=== PATIENT | female | born 1960 | race Caucasian/White ===

== ENCOUNTER → 2016-11-25 | Outpatient (CLI) | payer OTHER ==
[~2016-11-25] MED LIST: ASPI325T39 PO; ATOR10TA88 PO; CHOL1000 PO; CYAN100T PO; EPP3/2 IM; FLUT115A INH; HYDR-5688 PO; LORA10CA2 PO; METO25TA3 PO; MULT-506 PO; SULF800T23 PO; TRIA1SPR4 NAE; VNTHFA/IN INH
[2016-11-25 13:24] LABS: BASO ABS # 0.06 K/uL (0-0.2); COMPLETE YES; EOS % 2.8 %; HEMATOCRIT 43.5 % (37-47); IG% 0.2 %; LYMPH % 30.3 %; LYMPH ABS # 1.75 K/uL (1.2-3.4); MEAN CELL VOLUME 94.4 fL (80-100); MEAN CORPUSCULAR HEMOGLOBIN 31.2 pg (25-34); MEAN CORPUSCULAR HGB CONC 33.1 g/dl (32-36); MEAN PLATELET VOLUME 11.1 fL (7.4-10.4); MONO % 11.1 %; NEUT % 54.6 %; PLATELET COUNT 250 K/uL (130-400); RED BLOOD COUNT 4.61 M/uL (4.2-5.4); WHITE BLOOD COUNT 5.77 K/uL (4.8-10.8)
[2016-11-25 13:32] LABS: BLOOD UREA NITROGEN 11 mg/dl (7-18); BUN/CREATININE RATIO 14.1 (10-20); CALCIUM 8.4 mg/dl (8.5-10.1); CARBON DIOXIDE 28 mmol/L (21-32); CHLORIDE 106 mmol/L (98-107); CREATININE 0.76 mg/dl (0.60-1.20); GLUCOSE 86 mg/dl (70-99); POTASSIUM 4.3 mmol/L (3.5-5.1); SODIUM 141 mmol/L (136-145)
== END | disposition home or self-care (01) ==
LOC: C.LABMFLN 08:43
PROVIDERS: ATTEND Surgery
DX: C50.919 Malignant neoplasm of unspecified site of unspecified female breast (principal); Z01.812 Encounter for preprocedural laboratory examination

== ENCOUNTER 2016-11-27 06:57 | Inpatient (IN) | payer OTHER ==
[2016-11-26 09:08] VITALS: BMI 37.0
[~2016-11-27] VITALS: Ht 162.6 cm; Wt 97.7 kg
[2016-11-27] VITALS (11 sets, daily range): BP systolic 96–121; BP diastolic 58–72; PULSE 59–81; TEMP 36.3–36.8; O2SAT 93–97; Ht 162.6 cm; Wt 97.7 kg
[~2016-11-27 06:57] MED LIST changes: -CHOL1000 PO; +CLINDAMYCIN IV 900 MG in DEXTROSE 5% ADD-VANTAGE 100ML 100 ML IV SCH; -CYAN100T PO; -HYDR-5688 PO; +LACTATED RINGER'S 1000ML 1,000 ML IV SCH; -MULT-506 PO; -SULF800T23 PO
[2016-11-27] MEDS ORDERED: CYAN100T PO (07:35)
[2016-11-27] MEDS ORDERED: MULT-506 PO (07:35)
[2016-11-27] MEDS ORDERED: CHOL1000 PO (07:36)
[2016-11-27] MEDS ORDERED: MIDAZOLAM HCL 1 MG/ML 2ML VIAL ONE (08:38)
[2016-11-27] MEDS ORDERED: FENTANYL CITRATE INJ 50 MCG/1 ML 2 ML VIAL ONE ×2 (08:38→09:21)
[2016-11-27] MEDS ORDERED: ONDANSETRON INJ 2 MG/ML 2 ML VIAL IV PRN ×2 (09:00→10:30)
[2016-11-27] MEDS ORDERED: LABETALOL HCL IV 5 MG/ML 20ML IV PRN (09:00)
[2016-11-27] MEDS ORDERED: KETOROLAC TROMETHAMINE 30 MG/ML VIAL IV. PRN (09:00)
[2016-11-27] MEDS ORDERED: PROMETHAZINE HCL INJ 12.5 MG in SODIUM CHLORIDE 0.9% 50ML 50 ML IV PRN ×2 (09:00→12:45)
[2016-11-27] MEDS ORDERED: ATROPINE SULFATE 0.1 MG/ML 5ML SYR IV PRN (09:00)
[2016-11-27] MEDS ORDERED: LIDOCAINE HCL 2% 2 ML VIAL (20MG/ML) ONE (09:19)
[2016-11-27] MEDS ORDERED: ONDANSETRON INJ 2 MG/ML 2 ML VIAL ONE ×2 (09:19→10:34)
[2016-11-27] MEDS ORDERED: METOCLOPRAMIDE HCL INJ 5 MG/ML 2 ML VIAL ONE (09:19)
[2016-11-27] MEDS ORDERED: PROPOFOL IV EMULSION 10 MG/ML 20 ML VIAL IV ONE ×2 (09:19→09:21)
--- NOTE | 2016-11-27 09:20 | DIAGNOSTIC IMAGING REPORT ---
LYMPHOSCINTIGRAPHY CLINICAL HISTORY: Left breast cancer. PROCEDURE: Using standard sterile technique, 4 intradermal periareolar and one deep injection of 0.471 mCi of Lymphoseek was placed in the left breast. The patient tolerated the procedure well. There were no immediate complications. The patient was subsequently transported to the surgical suite. No imaging was obtained at the referring physician's request. IMPRESSION: Injection of 0.471 mCi of Lymphoseek into the left breast. Electronically signed by: Cornelio Amezcua M.D. 11/27/2016 9:18 AM Dictated Date/Time: 11/27/2016 9:18 AM
[2016-11-27] MEDS ORDERED: LACTATED RINGER'S 1000ML 1,000 ML IV SCH (10:29)
--- NOTE | 2016-11-27 10:29 | [facility] Operative Report ---
Operative Report Operative Date Nov 27, 2016. Pre-Operative Diagnosis Lt breast cancer Post-Operative Diagnosis same Procedure(s) Performed Lt mastectomy with sentinel lymph node bx Surgeon Amin Travel Clerk Surgeon(s) Haley Patel Estimated Blood Loss 30 cc Findings SLN neg on frozen Lt breast Specimens Lt Sent lymph node Lt breast Drains # 15 Rd KYUNG to chest/ axillary wound Anesthesia gen Complication(s) None Disposition Recovery Room / PACU I attest to the content of the Intraoperative Record and any orders documented therein. Any exceptions are noted below.
[2016-11-27] MEDS ORDERED: ALBUTEROL HFA 8 GM INHALER INH PRN (10:30)
[2016-11-27] MEDS ORDERED: MoRPHine SULFATE 4 MG/ML 1 ML CARP\\VIAL IV PRN (10:30)
[2016-11-27] MEDS ORDERED: MoRPHine SULFATE 2 MG/ML CARP IV PRN (10:30)
[2016-11-27] MEDS ORDERED: PROMETHAZINE HCL INJ 25 MG in SODIUM CHLORIDE 0.9% 50ML 50 ML IV PRN (10:30)
[2016-11-27] MEDS ORDERED: HYDROCODONE/ACETAMOPHEN 5/325MG TAB PO PRN ×2 (10:30)
[2016-11-27] MEDS ORDERED: HYDR-5688 PO (10:41)
[2016-11-27] MEDS ORDERED: SULF800T23 PO (10:41)
--- NOTE | 2016-11-27 10:49 | OPERATIVE REPORT ---
DATE OF OPERATION: 11/27/2016 PREOPERATIVE DIAGNOSIS: Recurrent left breast cancer. POSTOPERATIVE DIAGNOSIS: Same. NAME OF OPERATION: Left mastectomy with sentinel lymph node biopsy. STAFF SURGEON: Dr. Amin. MORTAR MIXER OPERATOR: Cody Patel PA-C. OPERATION AND FINDINGS: PROCEDURE: The patient was brought in the operating room and placed on the operating table in supine position. Her left arm was extended on an arm board. She had previously undergone injection for sentinel lymph node biopsy. Her left chest was prepped and draped in usual fashion. Incision was made in the left axilla using the Neoprobe, I was able to identify the sentinel lymph node which was sent for frozen section. During the frozen section, we did perform the mastectomy. The frozen section was negative. The left mastectomy was then performed by making superior and inferior incisions incorporating the nipple areolar complex in an elliptical fashion from medial to lateral and then constructing superior and inferior chest wall skin flaps by dissecting the breast tissue away from the subcutaneous tissue down to the chest wall. The pectoralis fascia was then removed with the breast. The breast was marked with a long silk suture lateral. I did encounter the biopsy cavity from prior excision which was down to the muscle. Additional muscle tissue was taken and sent for routine pathology. The site where the biopsy cavity was located on the muscle was marked using clips. At this point, the wounds were irrigated with saline solution then the axilla closed using 2-0 plain catgut for the deep tissue and then 4-0 nylon for the skin. The breast incision was then closed after a 15 round Paul-Lomas drain was placed into the left chest wound. The subcutaneous tissue was reapproximated using 3-0 Vicryl suture, then the skin reapproximated using subcuticular 4-0 Monocryl and then some 4-0 Prolene sutures. Steri-Strips were applied. Dressing was applied and patient transferred to recovery room in stable condition. I attest to the content of the Intraoperative Record and any orders documented therein. Any exceptio ns are noted below.
[2016-11-27] MEDS: FENTANYL CITRATE INJ 50 MCG/1 ML 2 ML VIAL IV PRN ×8 (10:50→11:25)
[2016-11-27] MEDS ORDERED: HYDROmorphone INJ 2 MG/ML SYR/VIAL ONE (11:35)
[2016-11-27] MEDS ORDERED: HYDROmorphone INJ 2 MG/ML SYR/VIAL IV PRN (11:45)
[2016-11-27] MEDS ORDERED: NURSING VERBAL MED ORDER ONE ×2 (11:45→21:30)
[2016-11-27] MEDS ORDERED: IV FLUIDS COMPLETED PRN (12:00)
--- NOTE | 2016-11-27 12:03 | Anesthesiology Progress Note ---
Anesthesia Post Op Note Date & Time Nov 27, 2016 at 12:03 Vital Signs Pain Intensity: 3 Vital Signs Past 12 Hours Date Time Temp Pulse Resp B/P Pulse Ox O2 Delivery O2 Flow Rate FiO2 11/27/16 11:53 76 17 107/58 97 11/27/16 11:53 77 17 11/27/16 11:49 113/54 11/27/16 11:48 81 15 97 11/27/16 11:48 82 15 11/27/16 11:43 67 16 122/59 97 11/27/16 11:43 70 16 11/27/16 11:39 109/63 11/27/16 11:38 78 16 11/27/16 11:38 78 16 97 11/27/16 11:34 114/57 11/27/16 11:33 86 19 98 11/27/16 11:33 79 19 11/27/16 11:29 116/59 11/27/16 11:28 79 17 97 11/27/16 11:28 79 17 11/27/16 11:27 36.9 75 16 11/27/16 11:27 76 16 98 11/27/16 11:23 124/62 11/27/16 11:22 78 14 98 11/27/16 11:22 77 14 11/27/16 11:18 113/64 11/27/16 11:17 76 16 11/27/16 11:17 77 16 98 11/27/16 11:13 116/58 11/27/16 11:12 68 17 98 11/27/16 11:12 69 17 11/27/16 11:09 122/59 11/27/16 11:07 75 20 99 11/27/16 11:07 75 20 11/27/16 11:04 123/64 11/27/16 11:02 71 17 11/27/16 11:02 71 17 99 11/27/16 10:59 120/58 11/27/16 10:57 57 18 99 11/27/16 10:57 55 18 11/27/16 10:55 137/63 11/27/16 10:54 78/68 11/27/16 10:52 58 17 11/27/16 10:52 59 17 100 11/27/16 10:49 142/72 11/27/16 10:47 59 18 11/27/16 10:47 59 18 100 11/27/16 10:44 113/67 11/27/16 10:42 58 14 11/27/16 10:42 56 14 100 11/27/16 10:40 122/45 11/27/16 10:37 36.5 62 16 122/45 100 Mask 10 11/27/16 07:41 36.7 61 20 120/66 97 Room Air Notes Mental Status: alert / awake / arousable, participated in evaluation Pt Amnestic to Procedure: Yes Nausea / Vomiting: adequately controlled Pain: adequately controlled Airway Patency, RR, SpO2: stable & adequate BP & HR: stable & adequate Hydration State: stable & adequate Anesthetic Complications: no major complications apparent
--- NOTE | 2016-11-27 12:12 | Discharge Instructions ---
Discharge Instructions Admission Reason for Admission: Left Breast Cancer Discharge Discharge Diagnosis / Problem: Left breast cancer Discharge Goals Goal(s): Decrease discomfort, Improve function, Improve disease control Activity Recommendations Activity Limitations: as noted below Lifting Limitations: no more than 10 pounds Exercise/Sports Limitations: until after follow-up appointment May Resume Sexual Activity: when tolerated (may shower) Driving or Machine Use: one week SPECIAL CARE INSTRUCTIONS: * Cover incisions and change daily for comfort/drainage. * Empty drain 2-3 times per day and record. * May use ibuprofen for pain as tolerated. * Expect some swelling and bruising. Call your doctor if: * Temperature above 101 degrees * Pain not relieved by pain medicine ordered * There is increased drainage or redness from any incision * You have any unanswered questions or concerns [phone]. FOLLOW UP VISIT: If not already scheduled, please call the office for a follow-up visit. for next week- drain check and wound check OFFICE PHONE NUMBER: Dr. Amin Office . Current Hospital Diet Patient's current hospital diet: Regular Diet Discharge Diet Recommended Diet: Regular Diet Procedures Procedures Performed: Left breast Mastectomy with [place] node biopsy Pending Studies Studies pending at discharge: no Medical Emergencies . Who to Call and When: Medical Emergencies: If at any time you feel your situation is an emergency, please call 911 immediately. . Non-Emergent Contact Non-Emergency issues call your: Surgeon . "Provider Documentation" section prepared by Abdirahman Amin. VTE Core Measure Inpt VTE Proph given/why not?: SCD's
--- NOTE | 2016-11-27 13:30 | Medical Consult ---
Consultation Date of Consultation: Nov 27, 2016. Attending Physician: Abdirahman Amin M.D. Reason for Consultation: Medical management History of Present Illness This patient is a pleasant 56-year-old female that underwent a left breast total mastectomy today for a history of recurrent breast cancer. The patient was first diagnosed with breast cancer in 2004. She underwent a left lumpectomy , chemotherapy and radiation. She was on tamoxifen until 2009. He was recently found on the mammogram that she had a new left breast mass. She currently has no complaints. She denies any significant pain. No nausea or vomiting. She does feel tired. She has not yet passed gas or had any bowel movements since the surgery. The patient's past medical history is significant for a recently diagnosed paroxysmal atrial fibrillation. She did have a discussion regarding anti- coagulation with her primary care provider. It was felt that she should get through this surgery before they initiate anticoagulation. Past Medical/Surgical History Paroxysmal atrial fibrillation Recurrent breast cancer Carotid artery stenosis Asthma Hyperlipidemia Status post left breast lumpectomy Status post Status post knee arthroscopy Status post tubal ligation Family History Mother-breast cancer and strokes Social History Smoking Status: Never Smoker Alcohol Use: none Marital Status: Housing Status: lives alone Allergies Coded Allergies: [place] (Verified Allergy, Severe, ANAPHYLAXIS, 11/27/16) Levofloxacin (Verified Allergy, Unknown, BODY ACHES AND DIFFICULTY WALKING , 11/27/16) Penicillins (Verified Allergy, Unknown, HIVES, 11/27/16) Home Medications Loratadine 10 mg daily Nasacort daily Atorvastatin 10 mg daily Aspirin 3 or 25 mg daily Metoprolol XL 25 mg daily Current Inpatient Medications Current Inpatient Medications Medications (Trade) Dose Ordered Sig/[place] Route Start Time Stop Time Status Last Admin Dose Admin Clindamycin Phosphate 900 mg/ Dextrose 106 ml @ 106 mls/hr PREOP IV 11/27/16 06:00 11/27/16 18:00 11/27/16 09:00 106 MLS/HR Lactated Ringer's (Lr 1000ml) 1,000 ml @ 15 mls/hr Q24H IV 11/27/16 06:00 11/28/16 05:59 11/27/16 07:50 15 MLS/HR Ondansetron HCl (Zofran Inj) 4 mg ONE PRN IV 11/27/16 09:00 11/27/16 14:00 Atropine Sulfate (Atropine Sulfate 0.1MG/Ml Inj) 0.5 mg Q1M PRN IV 11/27/16 09:00 11/27/16 14:00 Fentanyl Citrate (Fentanyl Inj) 25 mcg Q5M PRN IV 11/27/16 09:00 11/27/16 14:00 11/27/16 11:25 25 MCG Ketorolac Tromethamine (Toradol Inj) 30 mg ONE PRN IV. 11/27/16 09:00 11/27/16 14:00 11/27/16 10:46 30 MG Labetalol HCl 5 mg 5 mg Q5M PRN IV 11/27/16 09:00 11/27/16 14:00 Promethazine HCl/ Sodium Chloride (Phenergan Inj/ Nss 50ml) 50.5 ml @ 202 mls/hr ONE PRN IV 11/27/16 09:00 11/27/16 14:00 Albuterol (Ventolin Hfa Inhaler) 2 puffs QID PRN INH 11/27/16 10:30 12/27/16 10:29 Atorvastatin Calcium (Lipitor Tab) 10 mg QPM PO 11/27/16 21:00 12/27/16 20:59 Metoprolol Succinate (Toprol Xl Tab) 25 mg HS PO 11/27/16 21:00 12/27/16 20:59 Miscellaneous Information 1 ea 1 ea QS N/A 11/27/16 16:00 12/27/16 15:59 Lactated Ringer's (Lr 1000ml) 1,000 ml @ 50 mls/hr Q20H IV 11/27/16 10:29 12/27/16 10:28 11/27/16 12:44 50 MLS/HR Acetaminophen/ Hydrocodone Bitart ([place] 5/325 Tab) 1 tab Q4 PRN PO 11/27/16 10:30 12/11/16 10:29 Acetaminophen/ Hydrocodone Bitart ([place] 5/325 Tab) 2 tab Q4 PRN PO 11/27/16 10:30 12/11/16 10:29 Morphine Sulfate (MoRPHine SULFATE INJ) 2 mg Q4H PRN IV 11/27/16 10:30 12/11/16 10:29 Morphine Sulfate 4 mg 4 mg Q4H PRN IV 11/27/16 10:30 12/11/16 10:29 11/27/16 12:48 4 MG Promethazine HCl/ Sodium Chloride (Phenergan Inj/ Nss 50ml) 51 ml @ 204 mls/hr Q6H PRN IV 11/27/16 10:30 12/27/16 10:29 Ondansetron HCl (Zofran Inj) 4 mg Q6H PRN IV 11/27/16 10:30 12/27/16 10:29 Hydromorphone HCl (Dilaudid Inj) 0.25 mg Q5M PRN IV 11/27/16 11:45 11/27/16 16:45 Miscellaneous 1 ea 1 ea PRN PRN N/A 11/27/16 12:00 11/27/17 11:59 Promethazine HCl 12.5 mg/Sodium Chloride 50.5 ml @ 204 mls/hr Q6H PRN IV 11/27/16 12:45 12/27/16 12:44 Clindamycin Phosphate/Dextrose (Cleocin Iv/ Dextrose Add-[place] 50ML) 54 ml @ 108 mls/hr Q8@,, IV 11/27/16 18:00 11/28/16 17:59 Review of Systems 10 system review performed and negative unless noted in HPI or below Physical Exam Date Time Temp Pulse Resp B/P Pulse Ox O2 Delivery O2 Flow Rate FiO2 11/27/16 12:45 36.3 80 16 121/72 96 Nasal Cannula 2.0 11/27/16 12:37 95 Nasal Cannula 2.0 11/27/16 12:36 95 Nasal Cannula 2.0 11/27/16 12:15 36.8 81 12 102/65 95 Nasal Cannula 2.0 11/27/16 11:53 76 17 107/58 97 11/27/16 11:53 77 17 11/27/16 11:49 113/54 11/27/16 11:48 81 15 97 11/27/16 11:48 82 15 11/27/16 11:43 67 16 122/59 97 11/27/16 11:43 70 16 11/27/16 11:39 109/63 11/27/16 11:38 78 16 11/27/16 11:38 78 16 97 11/27/16 11:34 114/57 11/27/16 11:33 86 19 98 1/11/17 11:33 79 19 11/27/16 11:29 116/59 11/27/16 11:28 79 17 97 11/27/16 11:28 79 17 11/27/16 11:27 36.9 75 16 11/27/16 11:27 76 16 98 11/27/16 11:23 124/62 11/27/16 11:22 78 14 98 11/27/16 11:22 77 14 11/27/16 11:18 113/64 11/27/16 11:17 76 16 11/27/16 11:17 77 16 98 11/27/16 11:13 116/58 11/27/16 11:12 68 17 98 11/27/16 11:12 69 17 11/27/16 11:09 122/59 11/27/16 11:07 75 20 99 11/27/16 11:07 75 20 11/27/16 11:04 123/64 11/27/16 11:02 71 17 11/27/16 11:02 71 17 99 11/27/16 10:59 120/58 11/27/16 10:57 57 18 99 11/27/16 10:57 55 18 11/27/16 10:55 137/63 11/27/16 10:54 78/68 11/27/16 10:52 58 17 11/27/16 10:52 59 17 100 11/27/16 10:49 142/72 11/27/16 10:47 59 18 11/27/16 10:47 59 18 100 11/27/16 10:44 113/67 11/27/16 10:42 58 14 11/27/16 10:42 56 14 100 11/27/16 10:40 122/45 11/27/16 10:37 36.5 62 16 122/45 100 Mask 10 11/27/16 07:41 36.7 61 20 120/66 97 Room Air General Appearance: no apparent distress Head: normocephalic Eyes: EOMI Neck: no JVD Respiratory/Chest: lungs clear Cardiovascular: regular rate, rhythm Abdomen/GI: normal bowel sounds, non tender, soft Extremities/Musculoskelatal: no calf tenderness, no pedal edema Neurologic/Psych: no motor/sensory deficits, oriented x 3 Skin: warm/dry Assessment & Plan 56-year-old female with recurrent left-sided breast cancer status post left mastectomy today 11/27 -pain management, DVT prophylaxis, PT per primary team Paroxysmal A. fib-patient sounds like she is in regular rhythm today -Continue metoprolol XL 25 mg daily -Restart ASA 325 mg daily when ok with primary team -Would suggest that the patient be on a long-term anticoagulation. This may be discussed with her primary care physician after she is discharged home Asthma-no signs of flare -Continue Advair 115/21 BID -Duo nebs will be available if needed Hyperlipidemia -Continue atorvastatin 10 mg daily Thank you for this consultation. We will continue to follow i personally examined pt and verified all pickens points w A [facility] pain - but notes that pain meds have helped and just asked for one - notes it should be coming soon. does not believe pain med changes will be needed. was going to f/u w PCP re afib in may vitals noted nad, breathing unlabored, no pallor afib - rate controlled - right now risks of anticoagulation would outweigh benefits but suspect that in the long run she'd benefit. dont' have enough data to calculate CHADS-Vasc at this time. asked her to f/u w PCP in about a month (at which time she'd likely then be healed enough from surgery to be able to start anticoagulation if in fact it remains indicated) asthma - no breathing difficulty. as above otherwise as above Additional Copies To Shelley Rosas M.D.
[2016-11-27] MEDS ORDERED: CLINDAMYCIN 600 MG/54 ML D5W IV SCH (14:00)
[2016-11-27] MEDS: CLINDAMYCIN IV 600 MG in DEXTROSE 5% ADD-VANTAGE 50ML 50 ML IV SCH (17:33)
[2016-11-27] MEDS ORDERED: ATORVASTATIN 10 MG TAB PO SCH (21:00)
[2016-11-27] MEDS ORDERED: METOPROLOL SUCC 25MG EXT REL TAB PO SCH (21:00)
[2016-11-27] MEDS ORDERED: LORATADINE 10 MG TAB PO STA (21:30)
[2016-11-27] MEDS: SALMETEROL INH SCH (21:46)
[2016-11-27] MEDS: FLUTICASONE PROP INH SCH (21:46)
[2016-11-28] MEDS: CLINDAMYCIN IV 600 MG in DEXTROSE 5% ADD-VANTAGE 50ML 50 ML IV SCH ×2 (01:39→10:15)
[2016-11-28 03:51] VITALS: BP 105/69; PULSE 67; TEMP 36.9; O2SAT 92
--- NOTE | 2016-11-28 06:44 | Surgery Progress Note ---
Surgery Progress Note Date of Service Nov 28, 2016. Subjective Post OP Day: 1 No nausea, No vomiting feeling ok, taking no pain medication drainage expected Objective Vital Signs: Date Time Temp Pulse Resp B/P Pulse Ox O2 Delivery O2 Flow Rate FiO2 11/28/16 03:51 36.9 67 14 105/69 92 Room Air 11/28/16 00:55 Room Air 11/27/16 23:14 36.6 60 14 103/66 94 Room Air 11/27/16 22:48 Nasal Cannula 2.0 11/27/16 21:47 59 98/64 11/27/16 19:17 36.6 59 17 101/58 93 Room Air 11/27/16 15:18 36.8 61 17 101/64 97 Nasal Cannula 2.0 11/27/16 14:15 36.7 66 16 103/67 97 Nasal Cannula 2.0 11/27/16 13:15 36.5 69 16 96/58 97 Nasal Cannula 2.0 11/27/16 12:45 36.3 80 16 121/72 96 Nasal Cannula 2.0 11/27/16 12:37 95 Nasal Cannula 2.0 11/27/16 12:36 95 Nasal Cannula 2.0 11/27/16 12:15 36.8 81 12 102/65 95 Nasal Cannula 2.0 11/27/16 11:53 76 17 107/58 97 11/27/16 11:53 77 17 11/27/16 11:49 113/54 11/27/16 11:48 81 15 97 11/27/16 11:48 82 15 11/27/16 11:43 67 16 122/59 97 11/27/16 11:43 70 16 11/27/16 11:39 109/63 11/27/16 11:38 78 16 11/27/16 11:38 78 16 97 11/27/16 11:34 114/57 11/27/16 11:33 86 19 98 11/27/16 11:33 79 19 11/27/16 11:29 116/59 11/27/16 11:28 79 17 97 11/27/16 11:28 79 17 11/27/16 11:27 36.9 75 16 11/27/16 11:27 76 16 98 11/27/16 11:23 124/62 11/27/16 11:22 78 14 98 11/27/16 11:22 77 14 11/27/16 11:18 113/64 11/27/16 11:17 76 16 11/27/16 11:17 77 16 98 11/27/16 11:13 116/58 11/27/16 11:12 68 17 98 11/27/16 11:12 69 17 11/27/16 11:09 122/59 11/27/16 11:07 75 20 99 11/27/16 11:07 75 20 11/27/16 11:04 123/64 11/27/16 11:02 71 17 11/27/16 11:02 71 17 99 11/27/16 10:59 120/58 11/27/16 10:57 57 18 99 11/27/16 10:57 55 18 11/27/16 10:55 137/63 11/27/16 10:54 78/68 11/27/16 10:52 58 17 11/27/16 10:52 59 17 100 11/27/16 10:49 142/72 11/27/16 10:47 59 18 11/27/16 10:47 59 18 100 11/27/16 10:44 113/67 11/27/16 10:42 58 14 11/27/16 10:42 56 14 100 11/27/16 10:40 122/45 11/27/16 10:37 36.5 62 16 122/45 100 Mask 10 11/27/16 07:41 36.7 61 20 120/66 97 Room Air General Appearance: no apparent distress Respiratory/Chest: no respiratory distress Incision(s): dry, intact, drainage Laboratory Results: Results Past 24 Hours Test 11/28/16 06:25 Range/Units Assessment & Plan 11/28/16- s/p Lt mastectomy w/ sentinel lymph node bx- cont IV atbx, monitor for pain control, wound care
[2016-11-28] MEDS ORDERED: IBUPROFEN 600 MG TAB PO PRN (06:45)
[2016-11-28 07:19] VITALS: BP 113/71; PULSE 66; TEMP 36.8; O2SAT 93
--- NOTE | 2016-11-28 08:04 | Anesthesiology Progress Note ---
Anesthesia Post Op Note Date & Time Nov 28, 2016 at 08:03 Vital Signs Pain Intensity: 3.0 Vital Signs Past 12 Hours Date Time Temp Pulse Resp B/P Pulse Ox O2 Delivery O2 Flow Rate FiO2 11/28/16 07:19 36.8 66 16 113/71 93 Room Air 11/28/16 03:51 36.9 67 14 105/69 92 Room Air 11/28/16 00:55 Room Air 11/27/16 23:14 36.6 60 14 103/66 94 Room Air 11/27/16 22:48 Nasal Cannula 2.0 11/27/16 21:47 59 98/64 Notes Mental Status: alert / awake / arousable, participated in evaluation Pt Amnestic to Procedure: Yes Nausea / Vomiting: adequately controlled Pain: adequately controlled Airway Patency, RR, SpO2: stable & adequate BP & HR: stable & adequate Hydration State: stable & adequate Anesthetic Complications: no major complications apparent
[2016-11-28] MEDS: SALMETEROL INH SCH (08:09)
[2016-11-28] MEDS: FLUTICASONE PROP INH SCH (08:09)
[2016-11-28] MEDS ORDERED: LORATADINE 10 MG TAB PO SCH ×2 (09:00→21:00)
--- NOTE | 2016-11-28 10:57 | Hospitalist Progress Note ---
Hospitalist Progress Note Date of Service Nov 28, 2016. (Ximena Proctor PA-C) Subjective Pt evaluation today including: conversation w/ patient, physical exam, chart review, review of inpatient medication list Patient reports feeling fairly well this morning. She denies any significant pain. No nausea. She has however not passed gas. She has had the hiccups and has been burping. No shortness of breath. No chest pain or heart palpitations. No fever or chills. Additional Comments: 6 system review negative. Please see pertinent positives in the history of present illness section. (Ximena Proctor PA-C) Objective Vital Signs Date Time Temp Pulse Resp B/P Pulse Ox O2 Delivery O2 Flow Rate FiO2 11/28/16 07:19 36.8 66 16 113/71 93 Room Air 11/28/16 03:51 36.9 67 14 105/69 92 Room Air 11/28/16 00:55 Room Air 11/27/16 23:14 36.6 60 14 103/66 94 Room Air 11/27/16 22:48 Nasal Cannula 2.0 11/27/16 21:47 59 98/64 11/27/16 19:17 36.6 59 17 101/58 93 Room Air 11/27/16 15:18 36.8 61 17 101/64 97 Nasal Cannula 2.0 11/27/16 14:15 36.7 66 16 103/67 97 Nasal Cannula 2.0 11/27/16 13:15 36.5 69 16 96/58 97 Nasal Cannula 2.0 11/27/16 12:45 36.3 80 16 121/72 96 Nasal Cannula 2.0 11/27/16 12:37 95 Nasal Cannula 2.0 11/27/16 12:36 95 Nasal Cannula 2.0 11/27/16 12:15 36.8 81 12 102/65 95 Nasal Cannula 2.0 11/27/16 11:53 76 17 107/58 97 11/27/16 11:53 77 17 11/27/16 11:49 113/54 11/27/16 11:48 81 15 97 11/27/16 11:48 82 15 11/27/16 11:43 67 16 122/59 97 11/27/16 11:43 70 16 11/27/16 11:39 109/63 11/27/16 11:38 78 16 11/27/16 11:38 78 16 97 11/27/16 11:34 114/57 11/27/16 11:33 86 19 98 11/27/16 11:33 79 19 11/27/16 11:29 116/59 11/27/16 11:28 79 17 97 11/27/16 11:28 79 17 11/27/16 11:27 36.9 75 16 11/27/16 11:27 76 16 98 11/27/16 11:23 124/62 11/27/16 11:22 78 14 98 11/27/16 11:22 77 14 11/27/16 11:18 113/64 11/27/16 11:17 76 16 11/27/16 11:17 77 16 98 11/27/16 11:13 116/58 11/27/16 11:12 68 17 98 11/27/16 11:12 69 17 11/27/16 11:09 122/59 11/27/16 11:07 75 20 99 11/27/16 11:07 75 20 11/27/16 11:04 123/64 11/27/16 11:02 71 17 11/27/16 11:02 71 17 99 11/27/16 10:59 120/58 11/27/16 10:57 57 18 99 11/27/16 10:57 55 18 11/27/16 10:55 137/63 (Ximena Proctor PA-C) Physical Exam General Appearance: no apparent distress Neck: no JVD Respiratory/Chest: lungs clear Cardiovascular: + pertinent finding (occasional early beat. Otherwise regular rate and rhythm without murmur) Abdomen: non tender, soft, + pertinent finding (bowel sounds hypoactive) Extremities: non-tender, no pedal edema Neurologic/Psychiatric: no motor/sensory deficits, oriented x 3 Skin: warm/dry (Ximena Proctor PA-C) Laboratory Results Last 24 Hours Test 11/28/16 06:25 Hepatitis C Antibody Screen NEG (Ximena Proctor PA-C) Assessment and Plan 56-year-old female with recurrent left-sided breast cancer status post left mastectomy today 11/27 -pain management, DVT prophylaxis, PT per primary team ? Mild ileus -Colace 100 mg BID -Encourage ambulation -MiraLAX as needed Paroxysmal A. fib-patient sounds like she is in regular rhythm today -Continue metoprolol XL 25 mg daily -Restart ASA 325 mg daily when ok with primary team -Again, recommended that the patient be on long-term anticoagulation. This needs to be discussed with the patient's primary care physician within one month. Asthma-no signs of flare -Continue Advair 115/21 BID -Duo nebs will be available if needed Hyperlipidemia -Continue atorvastatin 10 mg daily Patient is stable for discharge from a medical standpoint. (Ximena Proctor, PADocC)
[2016-11-28] MEDS ORDERED: POLYETHYLENE (MIRALAX) 17 GM PACK PO PRN (11:00)
[2016-11-28] MEDS ORDERED: DOCUSATE SODIUM 100 MG CAP PO ONE (11:15)
[2016-11-28 11:18] VITALS: BP 113/75; PULSE 100; TEMP 36.5; O2SAT 93
[2016-11-28 13:59] VITALS: BP 113/75; PULSE 100; TEMP 36.5; O2SAT 93
[2016-11-28] MEDS ORDERED: DOCUSATE SODIUM 100 MG CAP PO SCH (21:00)
--- NOTE | 2016-12-03 10:45 | DISCHARGE SUMMARY ---
PRIMARY DISCHARGE DIAGNOSIS: 1. Recurrent left breast cancer. SECONDARY DISCHARGE DIAGNOSES: 1. History of paroxysmal atrial fibrillation. 2. Asthma. 3. Hyperlipidemia. PROCEDURE PERFORMED: Left mastectomy with sentinel lymph node biopsy. CONSULTATION: Damian Olson hospitalist to assist in medical management. HOSPITAL COURSE: The patient is a 56-year-old female with recurrent left breast cancer admitted through same day and taken to the operating room for a simple mastectomy and sentinel lymph node biopsy. The procedure was well tolerated. She was transferred to the surgical floor for observation. Medical service was consulted routinely. She did well postoperatively. On postoperative day #1, she was taking minimal analgesics and was tolerating p.o. Her asthma and atrial fibrillation remained quiescent. She was stable for discharge later in the day. DISCHARGE INSTRUCTIONS: Discharge home. Follow up with Dr. Amin in 1 week. She was given instructions on care of the KYUNG drain. There was 35 mL of drainage overnight prior to discharge. DISCHARGE MEDICATIONS: [place] 1-2 tablets every 6 hours as needed and Bactrim 1 tablet p.o. b.i.d. until the drain is removed. Resume her home medications - Ventolin 2 puffs as needed, aspirin 325 mg daily, Lipitor 10 mg daily, Advair HFA 2 puffs b.i.d., Claritin 10 mg daily, Toprol-XL 25 mg daily, Nasacort allergy as needed, daily multivitamin, and vitamins B and D.
== END 2016-11-28 14:56 | disposition home or self-care (01) | DRG 580 ==
LOC: ENRESERVDT → ENRESERVTM → C.ACU 06:57 → C.MSN 10:35 → OBSVTOIN 11-28 06:41
PROVIDERS: ADMIT Surgery; ATTEND Surgery
PROC: 07B60ZX Excision of Left Axillary Lymphatic, Open Approach, Diagnostic (ICD-10-PCS; principal; 2016-11-27 10:00)
PROC: 0HTU0ZZ Resection of Left Breast, Open Approach (ICD-10-PCS; principal; 2016-11-27 10:00)
DX: C50.912 Malignant neoplasm of unspecified site of left female breast (principal); K56.7 Ileus, unspecified; I48.0 Paroxysmal atrial fibrillation; J45.909 Unspecified asthma, uncomplicated; E78.5 Hyperlipidemia, unspecified; M19.90 Unspecified osteoarthritis, unspecified site; I65.29 Occlusion and stenosis of unspecified carotid artery; E66.9 Obesity, unspecified; Z68.37 Body mass index [BMI] 37.0-37.9, adult; Z80.3 Family history of malignant neoplasm of breast; Z79.51 Long term (current) use of inhaled steroids; Z79.899 Other long term (current) drug therapy; Z79.82 Long term (current) use of aspirin

== ENCOUNTER 2016-12-16 08:02 | Day surgery (SDC) | payer OTHER ==
[2016-12-12 13:22] VITALS: BMI 37.0
[~2016-12-16] VITALS: Ht 162.6 cm; Wt 97.7 kg
[~2016-12-16 08:02] MED LIST changes: +CHOL1000 PO; +CYAN100T PO; +MULT-506 PO
[2016-12-16 08:24] VITALS: BP 147/71; PULSE 73; TEMP 37.1; O2SAT 98; Ht 162.6 cm; Wt 97.7 kg
[2016-12-16] MEDS ORDERED: LIDOCAINE HCL 2% 2 ML VIAL (20MG/ML) ONE (08:43)
[2016-12-16] MEDS ORDERED: PROPOFOL IV EMULSION 10 MG/ML 20 ML VIAL IV ONE ×2 (08:43→09:50)
[2016-12-16] MEDS ORDERED: MIDAZOLAM HCL 1 MG/ML 2ML VIAL ONE (08:44)
--- NOTE | 2016-12-16 09:06 | History & Physical Bridge Note ---
H&P Re-Evaluation Bridge Note: I have examined the patient, reviewed the History & Physical and in the interval since the performance of the History & Physical I have noted the following changes of clinical significance: No changes noted
[2016-12-16] MEDS ORDERED: ATROPINE SULFATE 0.1 MG/ML 5ML SYR IV PRN (09:15)
[2016-12-16] MEDS ORDERED: EpHEDrine SULFATE INJ 50 MG/ML AMP IV PRN (09:15)
[2016-12-16] MEDS ORDERED: FENTANYL CITRATE INJ 50 MCG/1 ML 2 ML VIAL ONE (09:48)
[2016-12-16] MEDS ORDERED: METOPROLOL TARTRATE 1 MG/ML VIAL ONE (09:50)
[2016-12-16] MEDS ORDERED: HEPARIN SOD (PORCINE) 1000 UNIT/ML 10 ML VIAL FLUSH ONE (10:27)
[2016-12-16] MEDS ORDERED: CEFAZOLIN SOD 1 GM VIAL IRRIG ONE (10:28)
[2016-12-16] MEDS ORDERED: LIDOCAINE HCL 1% 20 ML VIAL INJ ONE (10:30)
--- NOTE | 2016-12-16 10:36 | [facility] Operative Report ---
Operative Report Operative Date Dec 16, 2016. Pre-Operative Diagnosis Breast Cancer Post-Operative Diagnosis same Procedure(s) Performed port placement Surgeon Dr. Abdirahman Amin Push Button Switch Assembler Surgeon(s) None Estimated Blood Loss 5ML Findings placed via Rt internal jugular vein Specimens none per surgeon Dr. Abdirahman Amin Anesthesia local/ sedation Complication(s) None Disposition Recovery Room / PACU I attest to the content of the Intraoperative Record and any orders documented therein. Any exceptions are noted below.
[2016-12-16] MEDS ORDERED: HYDR-5688 PO (10:37)
--- NOTE | 2016-12-16 10:38 | Discharge Instructions ---
Discharge Instructions Visit Reason for Visit: Breast Cancer Discharge Discharge Diagnosis / Problem: Breast cancer, port placed Discharge Goals Goal(s): Decrease discomfort, Improve function, Improve disease control Activity Recommendations Activity Limitations: as noted below Lifting Limitations: gradually increase as tolerated Exercise/Sports Limitations: until after follow-up appointment May Resume Sexual Activity: when tolerated Shower/Bathe: tomorrow Driving or Machine Use: resume 1 day after discharge SPECIAL CARE INSTRUCTIONS: * Cover incisions and change daily for comfort/drainage. * May use ibuprofen for pain as tolerated. * Expect some swelling and bruising. Call your doctor if: * Temperature above 101 degrees * Pain not relieved by pain medicine ordered * There is increased drainage or redness from any incision * You have any unanswered questions or concerns [phone]. FOLLOW UP VISIT: If not already scheduled, please call the office for a follow-up visit. for 2 weeks- [facility] OFFICE PHONE NUMBER: Dr. Amin Office Anesthesia . Post Anesthesia Instructions: If you have had General Anesthesia or IV Sedation: * Do not drive today. * Resume driving when surgeon permits. * Do not make important decisions or sign legal documents today. * Call surgeon for: 1. Temperature elevations greater than 101 degrees F. 2. Uncontrollable pain. 3. Excessive bleeding. 4. Persistent nausea and vomiting. 5. Medication intolerance (nausea, vomiting or rash). * For nausea and vomiting use only clear liquids such as: tea, soda, bouillon until nausea subsides, then gradually increase diet as tolerated. * If you have any concerns or questions, call your surgeon's office. If physician is unavailable and it is an emergency, call 911 or go to the nearest emergency room. . Diet Recommendations Recommended Home Diet: resume previous diet Procedures Procedures Performed: Insertion of A-Port Right Internal Jugular Vein Pending Studies Studies pending at discharge: no Medical Emergencies . Who to Call and When: Medical Emergencies: If at any time you feel your situation is an emergency, please call 911 immediately. . Non-Emergent Contact Non-Emergency issues call your: Surgeon . . "Provider Documentation" section prepared by Abdirahman Amin.
[2016-12-16] MEDS ORDERED: HYDROCODONE/ACETAMOPHEN 5/325MG TAB PO PRN ×2 (10:45)
[2016-12-16] MEDS ORDERED: ONDANSETRON INJ 2 MG/ML 2 ML VIAL IV PRN (10:45)
--- NOTE | 2016-12-16 10:59 | DIAGNOSTIC IMAGING REPORT ---
CHEST ONE VIEW PORTABLE HISTORY: Port insertion. COMPARISON: None. FINDINGS: There is a right jugular Port-A-Cath with the tip terminating in the distal right brachiocephalic vein. No pneumothorax. No pleural effusions. The heart is top normal in size. No focal lung consolidations. No evidence for point edema. There are few small surgical clips within the left breast. IMPRESSION: The right jugular Port-A-Cath terminates in the distal right brachiocephalic vein. No pneumothorax. Electronically signed by: Cedric Ramos M.D. 12/16/2016 10:58 AM Dictated Date/Time: 12/16/2016 10:56 AM
--- NOTE | 2016-12-16 11:03 | Anesthesiology Progress Note ---
Anesthesia Post Op Note Date & Time Dec 16, 2016 at 11:02 Vital Signs Pain Intensity: 4 Vital Signs Past 12 Hours Date Time Temp Pulse Resp B/P Pulse Ox O2 Delivery O2 Flow Rate FiO2 12/16/16 10:55 54 12 130/78 97 Room Air 12/16/16 10:45 57 22 118/81 96 Room Air 12/16/16 10:37 36.7 56 14 129/94 96 Room Air 12/16/16 08:24 37.1 73 18 147/71 98 Room Air Notes Mental Status: alert / awake / arousable, participated in evaluation Pt Amnestic to Procedure: Yes Nausea / Vomiting: adequately controlled Pain: adequately controlled Airway Patency, RR, SpO2: stable & adequate BP & HR: stable & adequate Hydration State: stable & adequate Anesthetic Complications: no major complications apparent
[2016-12-16 11:10] VITALS: BP 140/72; PULSE 63; TEMP 37.1; O2SAT 98
[2016-12-16] MEDS ORDERED: HYDROCODONE/ACETAMOPHEN 5/325MG TAB ONE (11:19)
--- NOTE | 2016-12-16 11:36 | OPERATIVE REPORT ---
DATE OF OPERATION: 12/16/2016 NAME OF OPERATION: Right internal jugular port placement. PREOPERATIVE DIAGNOSIS: Breast cancer. POSTOPERATIVE DIAGNOSIS: Same. STAFF SURGEON: Dr. Amin. ANESTHESIA: 1% plain lidocaine with sedation. PROCEDURE: The patient was brought into the operating room and placed on the operating table in a supine position. Her right chest was prepped and draped in the usual fashion. The patient had undergone previous left mastectomy, therefore the port was replaced on the right side. Using 1% plain lidocaine, skin and subcutaneous tissue over the right deltopectoral groove were anesthetized. Incision made carrying dissection down deeply through adipose tissue. I could not easily identify a cephalic vein large enough to place a catheter. At this point, I put the patient in Trendelenburg position and attempted a right subclavian puncture technique; however, I could not thread the wire into the vein. At this point, with the patient in Trendelenburg, I was able to localize the right internal jugular vein at the base of the right neck with good aspiration and then pass the wire under fluoroscopy. At this point, a small incision was made around the wire in the neck area, and then the catheter brought from the chest to the neck wound with the tunneler. The catheter was aspirated and flushed with heparinized saline solution. Dilator and introducer passed over the wire under fluoroscopy. The dilator and wire removed. The catheter then passed through the introducer. The introducer removed. The catheter positioned appropriately under fluoroscopy in the superior vena cava and then the port was attached to the catheter, aspirated and flushed with heparinized saline solution. A pocket fashioned in the subcutaneous tissue. The port placed into the pocket, secured using 3-0 Prolene suture, and then the subcutaneous tissue reapproximated using 2-0 plain and chromic catgut suture. Then the skin reapproximated using 4-0 nylon suture. The patient was transferred to recovery room in stable condition. It did take me at least 20 minutes extra with some difficulty to place it into the right internal jugular vein. I attest to the content of the Intraoperative Record and any orders documented therein. Any exceptio ns are noted below.
[2016-12-16 11:40] VITALS: BP 133/58; PULSE 63; O2SAT 98
== END 2016-12-16 12:00 | disposition home or self-care (01) ==
LOC: C.ACU 08:02
PROVIDERS: ATTEND Surgery
DX: C50.919 Malignant neoplasm of unspecified site of unspecified female breast (principal); E78.5 Hyperlipidemia, unspecified; J45.909 Unspecified asthma, uncomplicated; Z88.0 Allergy status to penicillin; E66.9 Obesity, unspecified; Z98.890 Other specified postprocedural states; Z90.12 Acquired absence of left breast and nipple; Z98.51 Tubal ligation status; Z79.82 Long term (current) use of aspirin; Z80.3 Family history of malignant neoplasm of breast; Z83.71 Family history of colonic polyps

== ENCOUNTER → 2017-01-21 | Outpatient (CLI) | payer OTHER ==
[~2017-01-21] MED LIST changes: -CLINDAMYCIN IV 900 MG in DEXTROSE 5% ADD-VANTAGE 100ML 100 ML IV SCH; +HYDR-5688 PO; -LACTATED RINGER'S 1000ML 1,000 ML IV SCH
== END | disposition home or self-care (01) ==
LOC: C.MAMM 09:35
PROVIDERS: ATTEND Internal Medicine Hematology & Oncology
DX: M85.89 Other specified disorders of bone density and structure, multiple sites (principal); Z85.3 Personal history of malignant neoplasm of breast

== ENCOUNTER → 2017-08-12 | Outpatient (CLI) | payer OTHER ==
[~2017-08-12] MED LIST changes: -HYDR-5688 PO
[2017-08-12 13:56] LABS: BASO % 0.7 %; BASO ABS # 0.03 K/uL (0-0.2); COMPLETE YES; EOS % 2.7 %; HEMATOCRIT 44.1 % (37-47); LYMPH % 29.6 %; MEAN CELL VOLUME 92.6 fL (80-100); MEAN CORPUSCULAR HEMOGLOBIN 31.9 pg (25-34); MEAN CORPUSCULAR HGB CONC 34.5 g/dl (32-36); MEAN PLATELET VOLUME 11.2 fL (7.4-10.4); MONO % 9.8 %; NEUT % 57.2 %; PLATELET COUNT 198 K/uL (130-400); RED BLOOD COUNT 4.76 M/uL (4.2-5.4); WHITE BLOOD COUNT 4.39 K/uL (4.8-10.8)
[2017-08-12 14:42] LABS: BLOOD UREA NITROGEN 15 mg/dl (7-18); GLUCOSE 84 mg/dl (70-99)
[2017-08-12 14:43] LABS: ALT/SGPT 27 U/L (12-78); AST/SGOT 20 U/L (15-37); BUN/CREATININE RATIO 16.4 (10-20); CALCIUM 8.9 mg/dl (8.5-10.1); CARBON DIOXIDE 25 mmol/L (21-32); CHLORIDE 106 mmol/L (98-107); CHOLESTEROL 172 mg/dl (0-200); POTASSIUM 3.9 mmol/L (3.5-5.1); SODIUM 140 mmol/L (136-145)
[2017-08-12 14:53] LABS: ALKALINE PHOSPHATASE 91 U/L (45-117); CHOLESTEROL/HDL RATIO 2.5; HDL CHOLESTEROL 68 mg/dl; LDL CHOLESTEROL CALCULATED 78 mg/dl; TRIGLYCERIDES 130 mg/dl (0-150); VERY LOW DENSITY LIPOPROT CALC 26 mg/dl
== END | disposition home or self-care (01) ==
LOC: C.LABMFLN 09:03
PROVIDERS: ATTEND Family Medicine
DX: I48.0 Paroxysmal atrial fibrillation (principal); E78.5 Hyperlipidemia, unspecified

== ENCOUNTER → 2017-08-19 | Outpatient (CLI) | payer OTHER ==
--- NOTE | 2017-08-19 15:31 | MAMMOGRAPHY REPORT ---
UNILATERAL RIGHT DIGITAL SCREENING MAMMOGRAM TOMOSYNTHESIS WITH CAD: 08/19/2017 CLINICAL HISTORY: Asymptomatic. Personal history of breast cancer. TECHNIQUE: Right breast tomosynthesis in addition to standard 2D mammography was performed. Current s billie was also evaluated with a Computer Aided Detection (CAD) system. COMPARISON: Comparison is made to exams dated: 10/01/2016 mammogram, 09/06/2016 mammogram, 08/15/2016 mammogram - [facility], 05/10/2015 mammogram, 05/25/2014 mammogram, and 05/09/2014 [facility]. BREAST COMPOSITION: There are scattered areas of fibroglandular density in the right breast. FINDINGS: The hub of a Mediport catheter projects over the far superior right pectoralis muscle on th e MLO view. There are 1-2 benign-appearing right breast calcifications. No suspicious mass, archite ctural distortion or cluster of suspicious microcalcifications is seen. IMPRESSION: ACR BI-RADS CATEGORY 1: NEGATIVE Stable mammographic appearance of the right breast, without mammographic evidence of malignancy. A 1 year screening mammogram is recommended. The patient will receive written notification of the result s. Approximately 10% of breast cancers are not detected with mammography. A negative mammographic report should not delay biopsy if a clinically suggestive mass is present. Madeline Pacheco M.D. ay/:08/19/2017 14:57:54 [employer] Maker Trim: Etelvina LUNA(Romulo)(M)(BD), [facility] letter sent: Normal 1/2 BI-RADS Code: ACR BI-RADS Category 1: Negative
== END | disposition home or self-care (01) ==
LOC: C.MAMM 08:39
PROVIDERS: ATTEND Family Medicine
DX: Z12.31 Encounter for screening mammogram for malignant neoplasm of breast (principal); Z85.3 Personal history of malignant neoplasm of breast

== ENCOUNTER → 2018-02-10 | Outpatient (CLI) | payer OTHER ==
[~2018-02-10] MED LIST changes: +ATOR10TA82 PO; -ATOR10TA88 PO
== END | disposition home or self-care (01) ==
LOC: C.LABSPEC 17:58
PROVIDERS: ATTEND Family Medicine
DX: L65.9 Nonscarring hair loss, unspecified (principal)

== ENCOUNTER → 2018-03-25 | Day surgery (SDC) | payer OTHER ==
[2018-03-17 15:49] VITALS: BMI 38.0
[~2018-03-25] VITALS: Ht 162.6 cm; Wt 102.0 kg
[~2018-03-25] MED LIST changes: +ANAS1TAB7 PO; +APIX1TAB3 PO; -ASPI325T39 PO; +ATROPINE SULFATE 0.1 MG/ML 5ML SYR IV PRN; +BIOT1CAP3 PO; -CHOL1000 PO; +CLINDAMYCIN 600 MG/54 ML D5W IV SCH; +EpHEDrine SULFATE 50MG/5ML SYR ONE; +FENTANYL CITRATE INJ 50 MCG/1 ML 2 ML VIAL IV PRN; +FENTANYL CITRATE INJ 50 MCG/1 ML 2 ML VIAL ONE; +HYDR-5688 PO; +HYDROCODONE/ACETAMIN 5/325MG TAB PO PRN; +LABETALOL HCL IV 5 MG/ML 20ML IV PRN; +LACTATED RINGER'S 1000ML 1,000 ML IV SCH; +LIDOCAINE HCL 1% 20 ML VIAL ONE; +LIDOCAINE HCL 2% 2 ML VIAL (20MG/ML) ONE; -METO25TA3 PO; +METOPROLOL TARTRATE 1 MG/ML VIAL ONE; +MIDAZOLAM HCL 1 MG/ML 2ML VIAL ONE; +ONDANSETRON INJ 2 MG/ML 2 ML VIAL IV PRN; +PROPOFOL IV EMULSION 10 MG/ML 20 ML VIAL ONE; +SOTALOL PO
[2018-03-25 06:05] VITALS: BP 102/84; PULSE 108; TEMP 36.4; O2SAT 97; Ht 162.6 cm; Wt 102.0 kg
--- NOTE | 2018-03-25 07:27 | [facility] Operative Report ---
Operative Report Operative Date March 25, 2018. Pre-Operative Diagnosis Breast cancer Post-Operative Diagnosis Breast cancer Procedure(s) Performed Removal of A-Port Right Internal Jugular Surgeon Dr. Amin Blow Mold Machine Operator Surgeon(s) None Estimated Blood Loss 5 ml Specimens A. Explanted hardware Drains None Anesthesia Type MAC Complication(s) none Disposition Recovery Room / PACU I attest to the content of the Intraoperative Record and any orders documented therein. Any exceptions are noted below.
--- NOTE | 2018-03-25 07:31 | Discharge Instructions ---
Discharge Instructions Date of Service March 25, 2018. Visit Reason for Visit: Breast Cancer, Exhausted Aport Discharge Discharge Diagnosis / Problem: port in place Discharge Goals Goal(s): Decrease discomfort, Improve function, Improve disease control Activity Recommendations Activity Limitations: as noted below Lifting Limitations: no more than 25 pounds (light activity for 2 weeks) Exercise/Sports Limitations: until after follow-up appointment May Resume Sexual Activity: when tolerated Shower/Bathe: tomorrow Driving or Machine Use: resume 1 day after discharge Anesthesia . Post Anesthesia Instructions: If you have had General Anesthesia or IV Sedation: * Do not drive today. * Resume driving when surgeon permits. * Do not make important decisions or sign legal documents today. * Call surgeon for: 1. Temperature elevations greater than 101 degrees F. 2. Uncontrollable pain. 3. Excessive bleeding. 4. Persistent nausea and vomiting. 5. Medication intolerance (nausea, vomiting or rash). * For nausea and vomiting use only clear liquids such as: tea, soda, bouillon until nausea subsides, then gradually increase diet as tolerated. * If you have any concerns or questions, call your surgeon's office. If physician is unavailable and it is an emergency, call 911 or go to the nearest emergency room. . Instructions / Follow-Up Instructions / Follow-Up SPECIAL CARE INSTRUCTIONS: * Cover incisions and change daily for comfort/drainage. * May use ibuprofen for pain as tolerated. * Expect some swelling and bruising. Call your doctor if: * Temperature above 101 degrees * Pain not relieved by pain medicine ordered * There is increased drainage or redness from any incision * You have any unanswered questions or concerns [phone]. FOLLOW UP VISIT: If not already scheduled, please call the office for a follow-up visit. for 2 weeks- suture removal OFFICE PHONE NUMBER: Dr. Amin Office Diet Recommendations Recommended Home Diet: resume previous diet Procedures Procedures Performed: Removal of A-Port Right Internal Jugular Pending Studies Studies pending at discharge: no Medical Emergencies . Who to Call and When: Medical Emergencies: If at any time you feel your situation is an emergency, please call 911 immediately. . Non-Emergent Contact Non-Emergency issues call your: Primary Care Provider, Surgeon . . "Provider Documentation" section prepared by Abdirahman Amin. .
--- NOTE | 2018-03-25 07:41 | OPERATIVE REPORT ---
DATE OF OPERATION: 03/25/2018 NAME OF OPERATION: Port removal. PREOPERATIVE DIAGNOSIS: Port in place with history of breast cancer. POSTOPERATIVE DIAGNOSIS: Same. STAFF SURGEON: Dr. Amin. ANESTHESIA: Sedation with 1% plain lidocaine. DESCRIPTION OF PROCEDURE: The patient was brought in the operating room and placed on the operating table in supine position. Her right upper chest was prepped and draped in usual fashion. A scar over her port was anesthetized. Using 1% plain lidocaine, incision made, carrying dissection down identifying the catheter. The catheter was clamped proximal and distal and then transected and then the catheter removed from the tunnel and venous system. The tunnel was oversewn using 2-0 chromic suture. The port was then dissected away from the subcutaneous tissue and sent for routine pathology. After appropriate hemostasis, deep tissue reapproximated using 2-0 plain suture and then the skin reapproximated using 5-0 Prolene suture. Dressing applied and the patient transferred to recovery room in stable condition. I attest to the content of the Intraoperative Record and any orders documented therein. Any exception s are noted below.
[2018-03-25 08:00] VITALS: BP 116/91; PULSE 52; TEMP 36.4; O2SAT 96
[2018-03-25 08:15] VITALS: BP 106/51; PULSE 50; O2SAT 97
[2018-03-25 08:32] VITALS: BP 112/54; PULSE 53; TEMP 36.8; O2SAT 97
--- NOTE | 2018-03-25 09:06 | Anesthesiology Progress Note ---
Anesthesia Post Op Note Date & Time March 25, 2018 at 09:06 Vital Signs Pain Intensity: 0 Vital Signs Past 12 Hours Date Time Temp Pulse Resp B/P (MAP) Pulse Ox O2 Delivery O2 Flow Rate FiO2 03/25/18 08:32 36.8 53 20 112/54 97 Room Air 03/25/18 08:15 50 16 106/51 97 Room Air 03/25/18 08:00 36.4 52 16 116/91 96 Room Air 03/25/18 07:45 36.2 53 14 123/68 98 Room Air 03/25/18 07:35 36.2 54 12 115/74 100 Oxymask 8 03/25/18 06:05 36.4 108 16 102/84 (90) 97 Room Air Notes Mental Status: alert / awake / arousable, participated in evaluation Pt Amnestic to Procedure: Yes Nausea / Vomiting: adequately controlled Pain: adequately controlled Airway Patency, RR, SpO2: stable & adequate BP & HR: stable & adequate Hydration State: stable & adequate Anesthetic Complications: no major complications apparent
== END | disposition home or self-care (01) ==
LOC: C.ACU 05:45
PROVIDERS: ATTEND Surgery
DX: Z95.828 Presence of other vascular implants and grafts (principal); Z85.3 Personal history of malignant neoplasm of breast; J45.909 Unspecified asthma, uncomplicated; I25.10 Atherosclerotic heart disease of native coronary artery without angina pectoris; E78.5 Hyperlipidemia, unspecified; M19.90 Unspecified osteoarthritis, unspecified site; E66.9 Obesity, unspecified; I48.0 Paroxysmal atrial fibrillation; E55.9 Vitamin D deficiency, unspecified; Z80.3 Family history of malignant neoplasm of breast; Z82.3 Family history of stroke; Z82.5 Family history of asthma and other chronic lower respiratory diseases; Z82.49 Family history of ischemic heart disease and other diseases of the circulatory system; Z88.0 Allergy status to penicillin

== ENCOUNTER → 2018-07-07 | Outpatient (CLI) | payer OTHER ==
[~2018-07-07] MED LIST changes: -ATROPINE SULFATE 0.1 MG/ML 5ML SYR IV PRN; -CLINDAMYCIN 600 MG/54 ML D5W IV SCH; -EpHEDrine SULFATE 50MG/5ML SYR ONE; -FENTANYL CITRATE INJ 50 MCG/1 ML 2 ML VIAL IV PRN; -FENTANYL CITRATE INJ 50 MCG/1 ML 2 ML VIAL ONE; -HYDROCODONE/ACETAMIN 5/325MG TAB PO PRN; -LABETALOL HCL IV 5 MG/ML 20ML IV PRN; -LACTATED RINGER'S 1000ML 1,000 ML IV SCH; -LIDOCAINE HCL 1% 20 ML VIAL ONE; -LIDOCAINE HCL 2% 2 ML VIAL (20MG/ML) ONE; -METOPROLOL TARTRATE 1 MG/ML VIAL ONE; -MIDAZOLAM HCL 1 MG/ML 2ML VIAL ONE; -ONDANSETRON INJ 2 MG/ML 2 ML VIAL IV PRN; -PROPOFOL IV EMULSION 10 MG/ML 20 ML VIAL ONE
== END | disposition home or self-care (01) ==
LOC: C.LABMFLN 13:46
PROVIDERS: ATTEND Family Medicine
DX: R10.9 Unspecified abdominal pain (principal); R82.90 Unspecified abnormal findings in urine